=== PATIENT | male | born 1980 | race Caucasian/White ===

== ENCOUNTER 2018-02-25 19:58 | Emergency (ER) | payer MEDICAID ==
[~2018-02-25] VITALS: Ht 172.7 cm; Wt 108.4 kg
[~2018-02-25 19:58] MED LIST: BENZ1TAB61 PO; BENZ2TAB6 PO; HYDROXINE PO; LORA-446 PO; NICO-486 TD; PROP10TA PO; TRAZ100T15 PO
[2018-02-25 20:00] VITALS: BP 137/86
[2018-02-25 20:42] LABS: BASOPHILS # (AUTO) 0.05 x10^3/uL (0-0.1); BASOPHILS % (AUTO) 1 % (0-1); EOSINOPHILS # (AUTO) 0.22 x10^3/uL (0-0.4); EOSINOPHILS % (AUTO) 3 % (1-7); LYMPHOCYTES # (AUTO) 2.45 x10^3/uL (1-3.4); LYMPHOCYTES % (AUTO) 32 % (22-44); MD NO; MEAN CORPUSCULAR HEMOGLOBIN 31.4 pg (27.5-34.5); MEAN CORPUSCULAR HGB CONC 34.2 g/dL (33.2-36.2); MEAN CORPUSCULAR VOLUME 92.1 fL (81-97); MEAN PLATELET VOLUME 10.9 fL (7.4-10.4); MONOCYTES # (AUTO) 0.46 x10^3/uL (0.2-0.8); MONOCYTES % (AUTO) 6 % (2-9); NEUTROPHILS # (AUTO) 4.43 x10^3/uL (1.8-6.8); NEUTROPHILS % (AUTO) 58 % (42-75); PLATELET COUNT 182 x10^3/uL (130-400); RED BLOOD COUNT 4.46 x10^6/uL (4.38-5.82); RED CELL DISTRIBUTION WIDTH 12.5 % (9.4-14.8)
[2018-02-25 20:52] LABS: ALBUMIN 3.7 g/dL (3.4-5.0); ANION GAP 9 mmol/L (5-15); CALCIUM 8.5 mg/dL (8.5-10.1); CHLORIDE 110 mmol/L (98-107); CREATININE 0.81 mg/dL (0.7-1.3)
[2018-02-25 20:53] LABS: ACETAMINOPHEN < 2 mcg/mL (10-30)
== END 2018-02-25 21:51 | disposition home or self-care (01) ==
LOC: ED 21:45
DX: R56.9 Unspecified convulsions (principal); F20.9 Schizophrenia, unspecified; Z76.0 Encounter for issue of repeat prescription; Z79.899 Other long term (current) drug therapy
CPT/HCPCS: 36415; 80048; 80307; 82040; 85025; 99284

== ENCOUNTER 2018-02-28 06:15 | Emergency (ER) | payer MEDICAID ==
[~2018-02-28] VITALS: Ht 172.7 cm; Wt 107.0 kg
[2018-02-28] MEDS ORDERED: KETOROLAC 30 MG/1 ML ONE (06:42)
[2018-02-28 06:54] LABS: BASOPHILS # (AUTO) 0.01 x10^3/uL (0-0.1); BASOPHILS % (AUTO) 0 % (0-1); EOSINOPHILS # (AUTO) 0.38 x10^3/uL (0-0.4); EOSINOPHILS % (AUTO) 6 % (1-7); LYMPHOCYTES # (AUTO) 2.01 x10^3/uL (1-3.4); LYMPHOCYTES % (AUTO) 32 % (22-44); MD NO; MEAN CORPUSCULAR HEMOGLOBIN 31.2 pg (27.5-34.5); MEAN CORPUSCULAR HGB CONC 34.6 g/dL (33.2-36.2); MEAN CORPUSCULAR VOLUME 90.2 fL (81-97); MEAN PLATELET VOLUME 11.1 fL (7.4-10.4); MONOCYTES # (AUTO) 0.42 x10^3/uL (0.2-0.8); MONOCYTES % (AUTO) 7 % (2-9); NEUTROPHILS % (AUTO) 55 % (42-75); PLATELET COUNT 188 x10^3/uL (130-400); RED BLOOD COUNT 4.69 x10^6/uL (4.38-5.82); RED CELL DISTRIBUTION WIDTH 12.7 % (9.4-14.8)
[2018-02-28] MEDS ORDERED: KETOROLAC 60 MG/2 ML IM ONE (07:00)
[2018-02-28 07:06] LABS: ALBUMIN 3.7 g/dL (3.4-5.0); ANION GAP 10 mmol/L (5-15); CALCIUM 8.5 mg/dL (8.5-10.1); CHLORIDE 107 mmol/L (98-107)
[2018-02-28 07:12] LABS: CREATININE 0.88 mg/dL (0.7-1.3); TROPONIN I < 0.015 ng/mL (0.000-0.045)
[2018-02-28] MEDS ORDERED: ETOMIDATE 20 MG/10 ML IV ONE (07:30)
[2018-02-28 07:39] VITALS: BP 117/76
== END 2018-02-28 07:50 | disposition home or self-care (01) ==
LOC: ED 07:42
DX: R07.89 Other chest pain (principal); J20.8 Acute bronchitis due to other specified organisms; B97.89 Other viral agents as the cause of diseases classified elsewhere; F17.200 Nicotine dependence, unspecified, uncomplicated; F20.9 Schizophrenia, unspecified; J44.9 Chronic obstructive pulmonary disease, unspecified
CPT/HCPCS: 36415; 71045; 80048; 82040; 84484; 85025; 93005; 96372; 99285; J1885

== ENCOUNTER 2021-01-17 02:10 | Emergency (ER) | payer MEDICAID ==
[~2021-01-17] VITALS: Ht 172.7 cm; Wt 108.3 kg
[~2021-01-17 02:10] MED LIST changes: -PROP10TA PO; +PROP10TA16 PO; +TRAZ-175 PO; -TRAZ100T15 PO
--- NOTE | 2021-01-17 02:26 | NUR ---
assessment made. ERP at bedside.
[2021-01-17] MEDS ORDERED: ONDANSETRON ODT 4 MG ONE (02:29)
[2021-01-17] MEDS ORDERED: MAALOX/HYOSCYAMINE/LIDOCAINE 45 ML BTL ONE (02:29)
[2021-01-17] MEDS ORDERED: MAALOX/HYOSCYAMINE/LIDOCAINE 45 ML BTL PO ONE (02:30)
[2021-01-17] MEDS ORDERED: ONDANSETRON 2MG/ML, 2ML IVPush ONE (02:30)
[2021-01-17] MEDS ORDERED: ONDANSETRON ODT 4 MG PO ONE (02:30)
--- NOTE | 2021-01-17 02:31 | NUR ---
patient medicated. awaiting blood draw.
--- NOTE | 2021-01-17 02:32 | NUR ---
lab associate at bedside for blood draw.
[2021-01-17 03:14] LABS: BASOPHILS % (AUTO) 1 % (0-1); EOSINOPHILS % (AUTO) 1 % (1-7); LYMPHOCYTES % (AUTO) 27 % (22-44); MD NO; MEAN CORPUSCULAR HEMOGLOBIN 30.4 pg (27.5-34.5); MEAN CORPUSCULAR HGB CONC 34.6 g/dL (33.2-36.2); MEAN PLATELET VOLUME 9.9 fL (7.4-10.4); MONOCYTES % (AUTO) 7 % (2-9); NEUTROPHILS % (AUTO) 64 % (42-75); PLATELET COUNT 168 x10^3/uL (130-400)
[2021-01-17 03:22] LABS: ALANINE AMINOTRANSFERASE 71 U/L (12-78); ALBUMIN 3.2 g/dL (3.4-5.0); ANION GAP 11 mmol/L (5-15); CALCIUM 8.9 mg/dL (8.5-10.1); CHLORIDE 104 mmol/L (98-107); CREATININE 0.86 mg/dL (0.7-1.3)
[2021-01-17 03:25] LABS: ALKALINE PHOSPHATASE 108 U/L (45-117); BILIRUBIN,TOTAL 1.1 mg/dL (0.2-1.0); TOTAL PROTEIN 7.6 g/dL (6.4-8.2)
--- NOTE | 2021-01-17 03:27 | NUR ---
patient sleeping, respiration unlabored.
--- NOTE | 2021-01-17 03:55 | NUR ---
re-evaluation done. patient states much better now. discharged with prescriptions and instruction. verbalized understanding.
[2021-01-17 03:56] VITALS: BP 112/78
== END 2021-01-17 03:58 | disposition home or self-care (01) ==
LOC: ED 03:40
DX: K29.00 Acute gastritis without bleeding (principal); R10.13 Epigastric pain; R11.0 Nausea; J44.9 Chronic obstructive pulmonary disease, unspecified; F17.210 Nicotine dependence, cigarettes, uncomplicated
CPT/HCPCS: 36415; 80053; 83690; 85025; 99283; 99406; Q0162

== ENCOUNTER 2021-04-21 16:46 | Emergency (ER) | payer MEDICAID ==
[~2021-04-21] VITALS: Ht 172.7 cm; Wt 100.2 kg
--- NOTE | 2021-04-21 17:26 | NUR ---
surgical scrub technologist reports new pt coming to room 3 and is currently in radiology. Room set up for full bedside monitoring due to OD reported to devops consultant.
--- NOTE | 2021-04-21 17:29 | NUR ---
Pt ambulatory with rough rib grader to room, changed into gown and socks, all belongings removed, placed on monitor with garage door then pulled down with patient monitor able to watch for changes. Pt states unable to give UA sample at this time. Palperidone 6mg x14 tabs filled today with empty bottle present and Quetapine 100mg x14 filled today with empty bottle present. Pt states he took them about 1700 in [facility] restroom in an attempt to kill himself. technician assistant present for blood draw.
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
--- NOTE | 2021-04-21 17:40 | NUR ---
Suzanne present at bedside for eval.
[2021-04-21 17:54] LABS: BASOPHILS % (AUTO) 1 % (0-1); EOSINOPHILS % (AUTO) 2 % (1-7); LYMPHOCYTES % (AUTO) 22 % (22-44); MEAN CORPUSCULAR HGB CONC 34.1 g/dL (33.2-36.2); MEAN PLATELET VOLUME 10.3 fL (7.4-10.4); MONOCYTES % (AUTO) 8 % (2-9); NEUTROPHILS % (AUTO) 67 % (42-75); PLATELET COUNT 218 x10^3/uL (130-400); RED BLOOD COUNT 4.88 x10^6/uL (4.38-5.82)
[2021-04-21 18:05] LABS: CHLORIDE 108 mmol/L (98-107)
[2021-04-21 18:12] LABS: ALANINE AMINOTRANSFERASE 37 U/L (12-78); ALBUMIN 3.6 g/dL (3.4-5.0); ALKALINE PHOSPHATASE 97 U/L (45-117); ANION GAP 7 mmol/L (5-15); BILIRUBIN,TOTAL 0.8 mg/dL (0.2-1.0); CALCIUM 9.4 mg/dL (8.5-10.1); CREATININE 0.82 mg/dL (0.7-1.3)
[2021-04-21] MEDS ORDERED: ESCI5SOL2 PO (18:14)
[2021-04-21] MEDS ORDERED: QUET100T PO (18:14)
[2021-04-21] MEDS ORDERED: PALI6TAB5 PO (18:14)
[2021-04-21] MEDS ORDERED: ALBU90AE2 IH (18:14)
[2021-04-21 18:15] LABS: MD NO
[2021-04-21 18:20] LABS: SALICYLATE LEVEL < 1.7 mg/dL (2.8-20.0)
--- NOTE | 2021-04-21 18:33 | NUR ---
Checked with MD, Poison Control still needs to call back at this time. Pt resting calmly in room with sitter in hallway.
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
--- NOTE | 2021-04-21 18:51 | NUR ---
PT RESTING COMFORTABLY IN BED WITH EYES CLOSED, EVEN AND SYMETRICAL CHEST RISE, SITTER IN VIEW OF PT, NADN, WCTM
--- NOTE | 2021-04-21 18:51 | NUR ---
REPORT FROM JANNA RAMOS
--- NOTE | 2021-04-21 19:50 | NUR ---
Pt ambulatory with steady gait to restroom for urine sample
--- NOTE | 2021-04-21 20:18 | NUR ---
Pt provided sandwhich and water per request
[2021-04-21 20:30] LABS: MICROSCOPIC NOT IND
[2021-04-21 20:42] LABS: AMPHETAMINE SCREEN, URINE Negative (Negative); BARBITURATE SCREEN, URINE Negative (Negative); BENZODIAZEPINE SCREEN, URINE Negative (Negative); CANNABINOID SCREEN, URINE Negative (Negative); COCAINE SCREEN, URINE Negative (Negative); METHADONE SCREEN, URINE Negative (Negative); OPIATE SCREEN, URINE Negative (Negative)
--- NOTE | 2021-04-21 21:41 | NUR ---
THROUGHPUT NURSE: SPOKE WITH POSION CONTROL. THEY RECCOMEND THAT DUE TO POTENTIAL DELAYED TOXICITY OF PALPERIDONE PT SHOULD BE UNDER OBS IN ER FOR 24 HOURS. WILL SEND MENTAL HEALTH PACKET TO APPROPRIATE FACILITES AFTER 24 HOURS HAS PASSED. WHICH WOULD BE 1700 ON April
--- NOTE | 2021-04-21 22:07 | NUR ---
repeat EKG complete
--- NOTE | 2021-04-21 22:15 | NUR ---
pt provided water, call light in reach, no other requests at this time
--- NOTE | 2021-04-21 23:21 | NUR ---
PT SITTING UP IN BED WATCHING TV, SITTER IN SIGHT OF PT, VSS, ROBERTN
--- NOTE | 2021-04-22 00:16 | NUR ---
PT SITTING UP IN BED WATCHING TV, SITTER IN SIGHT OF PT, VSS, ROBERTN
--- NOTE | 2021-04-22 01:13 | NUR ---
Pt resting in bed with eyes closed, even and symmetrical chest rise, sitter in sight of pt, WCTM
--- NOTE | 2021-04-22 02:58 | NUR ---
Pt resting in bed with eyes closed, even and symmetrical chest rise, sitter in sight of pt, WCTM
--- NOTE | 2021-04-22 04:22 | NUR ---
PT RESTING COMFORTABLY IN BED WITH EYES CLOSED, EVEN AND SYMETRICAL CHEST RISE, SITTER IN VIEW OF PT, NADN, WCTM
--- NOTE | 2021-04-22 05:27 | NUR ---
Pt has been attached to all monitors and cardiac monitors without EKG changes since this RN has assumed care of pt. LESTER GOLD
--- NOTE | 2021-04-22 06:53 | NUR ---
Report to Bri RAMOS
--- NOTE | 2021-04-22 06:55 | NUR ---
ASSUMING CARE OF PT FROM NOC RICHARD RODRIGUEZ AFTER BEDSIDE REPORT. PT RESTING IN BED ATTACHED TO MONITOR. VSS. NADN. SITTER AT BEDSIDE. PT BELONGINGS VERIFED TO BE IN LOCKER.
--- NOTE | 2021-04-22 07:28 | NUR ---
PT ALSEEP WITH EVEN AND UNLABORED RESPIRATIONS. SITTER AT BEDSIDE. ATTACHED TO MONITOR. VSS.
--- NOTE | 2021-04-22 08:36 | NUR ---
PT PROVIDED WITH BREAKFAST AND WATER. VSS. NADN. SITTING UP IN BED EATING IN LINE OF SITTER. SAFTEY PRECAUTIONS IN PLACE.
--- NOTE | 2021-04-22 09:41 | NUR ---
PT ASLEEP WITH EVEN AND UNLABORED RESPIRATIONS. SITTER AT BEDSIDE. SAFTEY PRECAUTIONS IN PLACE.
--- NOTE | 2021-04-22 10:28 | NUR ---
SPOKE WITH POSION CONTROL FOR UPDATE. NO NEW RECOMMONDATIONS. . PT ASLEEP WITH EVEN AND UNLABORED RESPRIATIONS.
--- NOTE | 2021-04-22 11:43 | NUR ---
PT ASLEEP WITH EVEN AND UNLABORED RESPIRATIONS. VSMaliha. LESTER. SITTER AT BEDSIDE.
--- NOTE | 2021-04-22 12:49 | NUR ---
PT PROVIDED WITH LUNCH. SITTING UP EATING FOOD. VSS. LESTER MARIA PRECAUTIONS IN PLACE. SITTER AT BEDSIDE.
--- NOTE | 2021-04-22 13:27 | NUR ---
PT RESTING IN BED. VSS. NADA. SITTER AT BEDSIDE. SAFTEY PRECAUTIONS IN PLACE.
--- NOTE | 2021-04-22 14:03 | NUR ---
TRISTAN DURAN TO BEDSIDE FOR EVALUAITON.
[2021-04-22] MEDS ORDERED: PALIPERIDONE PALMITATE 234 MG/1.5 ML IM ONE (14:30)
[2021-04-22 15:09] VITALS: BP 145/82
--- NOTE | 2021-04-22 15:09 | NUR ---
PT ASLEEP WITH EVEN AND UNLABORED RESPIRATIONS. VSS. NADN. SAFTEY PRECAUTIONS IN PLACE. SITTER AT BEDSIDE.
--- NOTE | 2021-04-22 16:28 | NUR ---
PT GIVEN DC PAPERWORK, BELONGINGS, AND TAXI VOULCHER FOR WELLCARE. PT GETTING DRESSED NOW FOR DC
--- NOTE | 2021-04-22 16:34 | NUR ---
Patient given discharge instructions and they have confirmed that they understand the instructions. Patient ambulatory with steady gait. NAD, all questions answered appropriately, denies additional needs at this time. No personal belongings left in room after discharge.
== END 2021-04-22 16:36 | disposition home or self-care (01) ==
LOC: ED 19:10 → EDIP 19:17 → INTOOBSV 19:17 → UNDOADMOB 19:17
DX: T43.591A Poisoning by other antipsychotics and neuroleptics, accidental (unintentional), initial encounter (principal); F20.9 Schizophrenia, unspecified; J44.9 Chronic obstructive pulmonary disease, unspecified; F17.200 Nicotine dependence, unspecified, uncomplicated; Y92.9 Unspecified place or not applicable
CPT/HCPCS: 36415; 71045; 80053; 80299; 80307; 80320; 81003; 85025; 93005; 96372; 99285; J2426; 80329; G0480

== ENCOUNTER 2021-08-13 23:43 | Emergency (ER) | payer MEDICAID ==
[~2021-08-13 23:43] MED LIST changes: +ALBU90AE2 IH; +ESCI5SOL2 PO; +PALI6TAB5 PO; +QUET100T2 PO
--- NOTE | 2021-08-13 23:50 | NUR ---
NIL X 1
--- NOTE | 2021-08-14 | NUR ---
NIL X 2
--- NOTE | 2021-08-14 00:15 | NUR ---
NIL X 3. PT NOT IN RESTROOM AND NOT SEEN OUTSIDE WELL.
== END 2021-08-14 00:17 | disposition left against medical advice (07) ==
LOC: ED 08-14
DX: Z53.21 Procedure and treatment not carried out due to patient leaving prior to being seen by health care provider (principal)